=== PATIENT | female | born 1955 | race Caucasian/White ===

== ENCOUNTER → 2016-02-23 | Outpatient (CLI) | payer OTHER ==
--- NOTE | 2016-02-23 14:03 | MA ---
Diagnostic Digital Mammogram left Breast Clinical Indications: Indeterminate microcalcifications left breast. Technique: Magnification views were obtained of the left breast in CC and 90 degree lateral projectio ns as well as a full 90 degree lateral view. This examination is processed by the [facility] computer-aid ed detection system. Comparison: February 15, 2016; January 22, 2015; and studies dating back to December 21, 2008 Breast density: C; The breasts are heterogeneously dense, which may obscure small masses. Findings: CAD was reviewed. The microcalcifications within the upper outer left breast near the chest wall on the magnification v iews are less clustered and are smooth and round. In retrospect, these were present on prior studies. However, there there is a second cluster of powder type microcalcifications that are more anterior i n position just above the nipple line in the MLO projection and projected laterally in the cc project ion that are more numerous than on the prior studies and a tighter cluster. These are felt to be mild ly suspicious. There is no associated mass Impression: Mildly suspicious posterior of powder type microcalcifications upper outer anterior left breast increased since prior studies. Stereotactic needle core biopsy is recommended for histologic s ampling. BI-RADS 4 These findings were communicated with the patient. A message was left with the medical and health services manager for Dr. Kortney Liao regarding these findings. Cosigned Dr. Juwan Thakkar.
== END ==
LOC: BMCIMAGING 12:56
PROVIDERS: ATTEND Obstetrics & Gynecology Gynecology
DX: Z12.39 Encounter for other screening for malignant neoplasm of breast (principal); R92.0 Mammographic microcalcification found on diagnostic imaging of breast
CPT/HCPCS: G0206

== ENCOUNTER → 2016-03-14 | Day surgery (SDC) | payer OTHER ==
[~2016-03-14] MED LIST: THROMBIN (RECOMBINANT) 5,000 UNIT VIAL TP ONE
--- NOTE | 2016-03-14 10:49 | MA ---
Diagnostic Digital Mammogram Left Breast Reason for examination: Follow up sonographically guided left breast biopsy. Technique: Craniocaudal and true lateral views were obtained. Findings: The Suros marker is deployed superiorly within the breast. It is possible that the cluster that was targeted was more superior to the microcalcifications that were circled on the February 23, 2016 study. The specimen does contain multiple calcifications. We will await pathologic results with follow-up to be determined by findings on that biopsy. I have reviewed this with the patient. Impression: The Suros marker is deployed at the biopsy site. The targeted microcalcifications may disla ve been different from the previously indicated microcalcifications with pathology pending.
--- NOTE | 2016-03-14 17:38 | MA ---
Stereotactic Core Biopsy Left Breast History: Suspicious microcalcifications left breast. Crosscutting Measure #226: Current tobacco user: No. Technique: Following informed consent (which included infection, bleeding and failure to obtain suff icient specimens for diagnosis), the patient was placed prone on the stereotactic biopsy table and th e breast was suspended through the open space in the table. A craniocaudal approach was employed. T he microcalcifications to be targeted are extremely faint and difficult to localize with a high degre e of certainty. The skin was then prepped in sterile fashion. Local anesthesia was achieved with 1% lidocaine, lidocaine mixed with epinephrine and Marcaine. A small skin natasha was placed on the skin surface through which the 9-gauge Suros vacuum-assisted core biopsy needle was advanced. Following c onfirmation of correct placement, core biopsy samples were obtained. Specimen radiograph demonstrates calcifications. A Suros sterile clip was then placed in the biopsy bed. A single mammographic imag e is obtained confirming the clip deployment. The needle was removed and hemostasis was achieved wit h manual compression. The specimen was sent to the Laboratory. The patient was sent for post proce dural mammogram to document clip placement and to look for postprocedural hematoma. It is possible t hat a slightly different grouping of microcalcifications was targeted than the ones that were initial ly circled on the diagnostic mammographic study of February 23, 2016. She was then discharged without complication, with follow up instructions. Impression: Stereotactic biopsy targeted at very faint microcalcifications in the left breast. Furt her evaluation can be considered depending on pathology findings. Preliminary results were reviewed with the patient. We will await pathologic results.
== END | disposition home or self-care (01) ==
LOC: FIMAGING 08:46
PROVIDERS: ATTEND Internal Medicine
PROC: 0HBU3ZX Excision of Left Breast, Percutaneous Approach, Diagnostic (ICD-10-PCS; principal; 2016-03-14)
DX: N60.12 Diffuse cystic mastopathy of left breast (principal)
CPT/HCPCS: G0206

== ENCOUNTER → 2017-03-16 | Outpatient (CLI) | payer OTHER | LOC: FIMAGING 14:46 | PROVIDERS: ATTEND Surgery | DX: Z12.31 Encounter for screening mammogram for malignant neoplasm of breast (principal); Z80.3 Family history of malignant neoplasm of breast ==

== ENCOUNTER → 2018-03-19 | Outpatient (CLI) | payer OTHER | LOC: FIMAGING 09:53 | PROVIDERS: ATTEND Obstetrics & Gynecology Gynecology | DX: Z12.31 Encounter for screening mammogram for malignant neoplasm of breast (principal); Z80.3 Family history of malignant neoplasm of breast ==